=== PATIENT | male | born 1985 | race Two or more races ===

== ENCOUNTER 2020-04-28 15:53 | Emergency (ER) | payer OTHER ==
[~2020-04-28] VITALS: Ht 180.3 cm; Wt 86.0 kg
[2020-04-28] MEDS ORDERED: KETOROLAC 60MG/2ML VIAL IM STA (16:40)
[2020-04-28 19:06] VITALS: BP 160/93
== END 2020-04-28 19:08 | disposition home or self-care (01) ==
LOC: ER 15:53
DX: S39.012A Strain of muscle, fascia and tendon of lower back, initial encounter (principal); M25.561 Pain in right knee; M25.551 Pain in right hip; V49.49XA Driver injured in collision with other motor vehicles in traffic accident, initial encounter; Y93.89 Activity, other specified; Y92.89 Other specified places as the place of occurrence of the external cause; Y99.8 Other external cause status
CPT/HCPCS: 72100; 73502; 73562; 96372; 99284; J1885